=== PATIENT | male | born 1980 | race Two or more races ===

== ENCOUNTER 2017-01-06 05:23 | Emergency (ER) | payer SELFPAY ==
[~2017-01-06] VITALS: Ht 157.5 cm; Wt 45.4 kg
[2017-01-06 06:23] LABS: Basophils # (auto) 0.1 uL; Basophils % (auto) 0.7 % (0.0-2.0); Eosinophils # (auto) 0 uL; Eosinophils % (auto) 0.5 % (0.0-7.0); Hematocrit 42.6 % (41.0-53.0); Hemoglobin 14.6 g/dL (13.5-17.5); Lymphocytes # (auto) 1.5 uL; Lymphocytes % (auto) 15.4 % (10.0-50.0); Mean Corpuscular Hemoglobin 31.8 pg (28.0-32.0); Mean Corpuscular Hgb Conc. 34.3 g/dL (32.0-36.0); Mean Corpuscular Volume 92.6 fL (80.0-100.0); Mean Platelet Volume 8.7 fL (6.9-10.8); Monocytes # (auto) 0.9 uL; Monocytes % (auto) 9.1 % (0.0-12.0); Neutrophils # (auto) 7.4 uL; Neutrophils % (auto) 74.3 % (37.0-80.0); Nucleated Red Blood Cells % 0.1 %; Platelet Count (auto) 282 10^3/uL (140-450); Red Cell Distribution Width 14.5 % (11.8-14.3); White Blood Cell 9.9 10^3/uL (4.4-10.8)
[2017-01-06 06:33] LABS: Albumin 3.7 g/dL (3.4-5.0); BUN/Creatinine Ratio 41.4; Calcium 9.4 mg/dL (8.5-10.1); Potassium 4.2 mmol/L (3.5-5.1)
[2017-01-06 06:41] LABS: Bilirubin, Total 0.3 mg/dL (0.2-1.0); Total Protein 7.9 g/dL (6.4-8.2)
[2017-01-06] MEDS ORDERED: SODIUM CHLORIDE 0.9% 1,000 ML IV ONE (06:45)
[2017-01-06] MEDS ORDERED: ONDANSETRON HCL 4 MG/2 ML VIAL IV ONE (06:45)
[2017-01-06] MEDS ORDERED: HYDROmorphone HCL 2 MG/ML VL IV ONE (07:30)
[2017-01-06 07:31] VITALS: BP 124/98
[2017-01-06] MEDS ORDERED: KETOROLAC TROMETH 30 MG/ML 1ML VIAL ONE (08:00)
[2017-01-06] MEDS ORDERED: KETOROLAC TROMETH 30 MG/ML 1ML VIAL IV ONE (08:15)
[2017-01-06] MEDS ORDERED: DOCUSATE ORAL LIQUID 100 MG/10 ML UD GT ONE (09:15)
== END 2017-01-06 10:40 | disposition home or self-care (01) ==
LOC: EDBD 05:23 → ER 05:33
DX: K59.00 Constipation, unspecified (principal)
CPT/HCPCS: 36415; 74176; 80053; 82150; 83690; 85025; 96361; 96374; 96375; 99285; J1885; J2405

== ENCOUNTER 2017-07-16 06:18 | Inpatient (IN) | payer MEDICAID ==
[~2017-07-16] VITALS: Ht 160 cm; Wt 44.8 kg
[~2017-07-16 06:18] MED LIST: BACL10TA GT; BISA-4 PR; DEXT100S73 GT; ESOM40CA39 GT; IPRIH IN; LEVE500T3 GT; MELA3TAB27 GT; MULTLIQ28 GT; NUTR1.5L4 GT; OLAN5TAB30 GT; SENN1TAB14 PO; ZONI1POW2 GT
[2017-07-16] MEDS ORDERED: SODIUM CHLORIDE 0.9% 1,000 ML IV ONE (07:17)
[2017-07-16 07:43] LABS: Basophils # (auto) 0 uL; Basophils % (auto) 0.2 % (0.0-2.0); Eosinophils # (auto) 0 uL; Eosinophils % (auto) 0.2 % (0.0-7.0); Lymphocytes # (auto) 0.8 uL; Monocytes # (auto) 0.5 uL; Neutrophils # (auto) 8.3 uL
[2017-07-16 07:51] LABS: Hematocrit 47.2 % (41.0-53.0); Hemoglobin 15.9 g/dL (13.5-17.5); Lymphocytes % (auto) 8.2 % (10.0-50.0); Mean Corpuscular Hemoglobin 30.7 pg (28.0-32.0); Mean Corpuscular Hgb Conc. 33.8 g/dL (32.0-36.0); Mean Corpuscular Volume 90.9 fL (80.0-100.0); Monocytes % (auto) 4.7 % (0.0-12.0); Neutrophils % (auto) 86.7 % (37.0-80.0); Platelet Count (auto) 222 10^3/uL (140-450); Red Blood Cells 5.19 10^6/uL (4.5-5.90); Red Cell Distribution Width 13.1 % (11.8-14.3); White Blood Cell 9.6 10^3/uL (4.4-10.8)
[2017-07-16 07:57] LABS: Alanine Aminotransferase 43 U/L (16-61); Albumin 4.1 g/dL (3.4-5.0); Alkaline Phosphatase 107 U/L (45-117); Amylase 53 U/L (25-115); Anion Gap 8 (5-15); Aspartate Aminotransferase 21 U/L (15-37); BUN/Creatinine Ratio 29.1; Bilirubin, Total 0.5 mg/dL (0.2-1.0); Blood Urea Nitrogen 23 mg/dL (7-18); Calcium 9.4 mg/dL (8.5-10.1); Carbon Dioxide 26 mmol/L (21-32); Chloride 108 mmol/L (98-107); GFR African American 141 mL/min; GFR Non-African American 117 mL/min; Glucose 112 mg/dL (74-106); Lipase 107 U/L (73-393); Potassium 3.9 mmol/L (3.5-5.1); Sodium 142 mmol/L (136-145); Total Protein 8.8 g/dL (6.4-8.2)
[2017-07-16 11:29] LABS: Urine Bacteria FEW /hpf (None Seen); Urine Blood 2+ /uL (Negative); Urine Mucus FEW (None Seen); Urine Specific Gravity 1.018 (1.001-1.035); Urine WBC 143 /hpf (0 - 3)
[2017-07-16] MEDS ORDERED: ONDANSETRON HCL 4 MG/2 ML VIAL ONE (13:34)
[2017-07-16] MEDS ORDERED: ONDANSETRON HCL 4 MG/2 ML VIAL IV ONE (13:45)
[2017-07-16] MEDS ORDERED: PANTOPRAZOLE 40 MG/10 ML VIAL IV ONE ×2 (14:30→14:45)
[2017-07-16] MEDS ORDERED: cefTRIAXone 1GM/10ml IVPUSH 10 ML IV ONE (14:45)
[2017-07-16] MEDS ORDERED: NITROGLYCERIN 0.4 MG SL TAB SL PRN (14:45)
[2017-07-16] MEDS ORDERED: LORazepam 2MG/ML-1ML VIAL IV PRN (14:45)
[2017-07-16] MEDS ORDERED: MORPHINE SULFATE 8mg/ml INJ SDV IV PRN ×3 (14:45)
[2017-07-16] MEDS ORDERED: PROMETHAZINE HCL 25 MG/ML 1ML IV PRN (14:45)
[2017-07-16] MEDS ORDERED: ALBUTEROL SULF 2.5 MG/0.5ML(0.5%) NEB SOLN NEB PRN (14:45)
[2017-07-16 15:13] VITALS: BP 100/75
[2017-07-16] MEDS: SODIUM CHLORIDE 0.9% 1,000 ML IV SCH (15:21)
[2017-07-16] MEDS: LACTULOSE 20Gm/30ML SOLN PO SCH ×2 (15:30→23:21)
[2017-07-16 18:10] LABS: Hematocrit 41.2 % (41.0-53.0); Hemoglobin 13.6 g/dL (13.5-17.5)
[2017-07-16] MEDS: IPRATROPIUM BROM 0.5 MG/2.5ML INH SOL NEB SCH (18:37)
[2017-07-16] MEDS: ALBUTEROL SULF 2.5 MG/0.5ML(0.5%) NEB SOLN NEB SCH (18:37)
[2017-07-16 20:30] VITALS: BP 103/68
[2017-07-16 21:00] VITALS: BP 103/68
[2017-07-16] MEDS ORDERED: GASTROGRAFIN 30 ML SOL ONE (21:13)
[2017-07-16] MEDS ORDERED: FLEET ENEMA(ADULT) 135 ML PR ONE (23:00)
[2017-07-17] MEDS: ALBUTEROL SULF 2.5 MG/0.5ML(0.5%) NEB SOLN NEB SCH ×4 (00:52→19:07)
[2017-07-17] MEDS: IPRATROPIUM BROM 0.5 MG/2.5ML INH SOL NEB SCH ×4 (00:52→19:06)
[2017-07-17 01:07] LABS: Hematocrit 43.7 % (41.0-53.0); Hemoglobin 14.3 g/dL (13.5-17.5)
[2017-07-17] MEDS: SODIUM CHLORIDE 0.9% 1,000 ML IV SCH ×3 (02:08→20:45)
[2017-07-17 04:56] VITALS: BP 89/50
[2017-07-17 05:39] LABS: Hematocrit 41.2 % (41.0-53.0); Hemoglobin 13.7 g/dL (13.5-17.5)
[2017-07-17 09:00] VITALS: BP 108/68
[2017-07-17] MEDS: PANTOPRAZOLE 40 MG/10 ML VIAL IV SCH (09:52)
[2017-07-17] MEDS: cefTRIAXone 1GM/10ml IVPUSH 10 ML IV SCH (09:52)
[2017-07-17] MEDS: LACTULOSE 20Gm/30ML SOLN PO SCH ×2 (09:53→22:06)
[2017-07-17] MEDS: ENOXAPARIN SOD 40 MG/0.4 ML SYRINGE SC SCH (09:53)
[2017-07-17] MEDS: AZITHROMYCIN 500MG/ 250ML 250 ML IV SCH (09:53)
[2017-07-17 11:38] LABS: INR 1.05 (0.9-1.15); Partial Thromboplastin Time 27.2 sec (23.78-33.04); Prothrombin Time 11.2 sec (9.27-12.13)
[2017-07-17 12:28] VITALS: BP 99/64
[2017-07-17] MEDS ORDERED: LIDOCAINE VISCOUS 2% 15ML UD ONE (13:50)
[2017-07-17] MEDS ORDERED: MIDAZOLAM HCL 5 MG/ML-1ML VIAL ONE (13:50)
[2017-07-17] MEDS ORDERED: fentaNYL CITRATE 100 MCG/2 ML VL ONE (13:50)
[2017-07-17] MEDS ORDERED: diphenhdrAMINE HCL 50 MG/1 ML VL ONE (15:35)
[2017-07-17] MEDS ORDERED: BENZOCAINE (DENTAL) 20 % SPRAY 60ML MT ONE (15:48)
[2017-07-18] MEDS: ALBUTEROL SULF 2.5 MG/0.5ML(0.5%) NEB SOLN NEB SCH ×4 (00:17→19:51)
[2017-07-18] MEDS: IPRATROPIUM BROM 0.5 MG/2.5ML INH SOL NEB SCH ×4 (00:17→19:51)
[2017-07-18] MEDS: SODIUM CHLORIDE 0.9% 1,000 ML IV SCH (02:37)
[2017-07-18 04:00] VITALS: BP 96/57
[2017-07-18 05:47] LABS: Basophils # (auto) 0 uL; Basophils % (auto) 0.6 % (0.0-2.0); Eosinophils # (auto) 0.1 uL; Eosinophils % (auto) 1.6 % (0.0-7.0); Hematocrit 34.2 % (41.0-53.0); Hemoglobin 11.6 g/dL (13.5-17.5); Lymphocytes # (auto) 1.8 uL; Lymphocytes % (auto) 34.3 % (10.0-50.0); Mean Corpuscular Hemoglobin 31.4 pg (28.0-32.0); Mean Corpuscular Hgb Conc. 33.9 g/dL (32.0-36.0); Mean Corpuscular Volume 92.5 fL (80.0-100.0); Monocytes # (auto) 0.4 uL; Monocytes % (auto) 7.4 % (0.0-12.0); Neutrophils # (auto) 2.9 uL; Neutrophils % (auto) 56.1 % (37.0-80.0); Platelet Count (auto) 161 10^3/uL (140-450); White Blood Cell 5.1 10^3/uL (4.4-10.8)
[2017-07-18 06:02] LABS: BUN/Creatinine Ratio 42.5; Calcium 8.3 mg/dL (8.5-10.1); Magnesium 2.6 mg/dL (1.6-2.6); Potassium 3.4 mmol/L (3.5-5.1)
[2017-07-18] MEDS ORDERED: POTASSIUM CHL 10 Meq TABLET PO ONE (06:15)
[2017-07-18 09:00] VITALS: BP 86/50
[2017-07-18] MEDS: PANTOPRAZOLE 40 MG/10 ML VIAL IV SCH (10:27)
[2017-07-18] MEDS: ENOXAPARIN SOD 40 MG/0.4 ML SYRINGE SC SCH (10:27)
[2017-07-18] MEDS: LACTULOSE 20Gm/30ML SOLN PO SCH ×2 (10:27→22:34)
[2017-07-18] MEDS: cefTRIAXone 1GM/10ml IVPUSH 10 ML IV SCH (10:27)
[2017-07-18] MEDS: AZITHROMYCIN 500MG/ 250ML 250 ML IV SCH (10:28)
[2017-07-18 13:00] VITALS: BP 54/48
[2017-07-18] MEDS: SOD CHL 0.45% 1,000 ML IV SCH (15:45)
[2017-07-18 17:00] VITALS: BP 112/68
[2017-07-18] MEDS: LEVETIRACETAM 500 MG TAB PO SCH ×2 (17:27→22:00)
[2017-07-18 21:38] VITALS: BP 106/70
[2017-07-18] MEDS: PANTOPRAZOLE 40 MG TAB PO SCH (22:00)
[2017-07-19] VITALS (8 sets, daily range): BP systolic 99–116; BP diastolic 60–78
[2017-07-19] MEDS: IPRATROPIUM BROM 0.5 MG/2.5ML INH SOL NEB SCH ×4 (00:21→19:03)
[2017-07-19] MEDS: ALBUTEROL SULF 2.5 MG/0.5ML(0.5%) NEB SOLN NEB SCH ×4 (00:21→19:03)
[2017-07-19] MEDS: SOD CHL 0.45% 1,000 ML IV SCH ×4 (01:03→22:18)
[2017-07-19 05:50] LABS: Basophils # (auto) 0 uL; Basophils % (auto) 0.7 % (0.0-2.0); Eosinophils # (auto) 0.3 uL; Eosinophils % (auto) 5.1 % (0.0-7.0); Hematocrit 36.8 % (41.0-53.0); Hemoglobin 12.4 g/dL (13.5-17.5); Lymphocytes # (auto) 2.1 uL; Lymphocytes % (auto) 43.5 % (10.0-50.0); Mean Corpuscular Hemoglobin 30.7 pg (28.0-32.0); Mean Corpuscular Hgb Conc. 33.8 g/dL (32.0-36.0); Mean Corpuscular Volume 90.8 fL (80.0-100.0); Monocytes # (auto) 0.4 uL; Neutrophils # (auto) 2.1 uL; Neutrophils % (auto) 42.7 % (37.0-80.0); Platelet Count (auto) 161 10^3/uL (140-450); Red Blood Cells 4.05 10^6/uL (4.5-5.90); Red Cell Distribution Width 12.8 % (11.8-14.3); White Blood Cell 4.9 10^3/uL (4.4-10.8)
[2017-07-19] MEDS: LEVETIRACETAM 500 MG TAB PO SCH ×3 (06:00→22:17)
[2017-07-19 06:11] LABS: Anion Gap 10 (5-15); BUN/Creatinine Ratio 29.3; Blood Urea Nitrogen 12 mg/dL (7-18); Calcium 8.2 mg/dL (8.5-10.1); Carbon Dioxide 24 mmol/L (21-32); Chloride 112 mmol/L (98-107); GFR African American 301 mL/min; GFR Non-African American 249 mL/min; Glucose 74 mg/dL (74-106); Potassium 3.1 mmol/L (3.5-5.1); Sodium 146 mmol/L (136-145)
[2017-07-19] MEDS ORDERED: POTASSIUM CHL 20 Meq TABLET PO ONE (07:45)
[2017-07-19] MEDS: LACTULOSE 20Gm/30ML SOLN PO SCH ×2 (09:57→22:17)
[2017-07-19] MEDS: PANTOPRAZOLE 40 MG TAB PO SCH ×2 (09:58→22:17)
[2017-07-19] MEDS: ENOXAPARIN SOD 40 MG/0.4 ML SYRINGE SC SCH (09:58)
[2017-07-19] MEDS: AZITHROMYCIN 500MG/ 250ML 250 ML IV SCH (09:58)
[2017-07-19] MEDS: cefTRIAXone 1GM/10ml IVPUSH 10 ML IV SCH (09:58)
[2017-07-19] MEDS ORDERED: Fibersource Hn 1 Liter GT SCH (14:15)
[2017-07-20] MEDS: ALBUTEROL SULF 2.5 MG/0.5ML(0.5%) NEB SOLN NEB SCH ×4 (00:01→18:09)
[2017-07-20] MEDS: IPRATROPIUM BROM 0.5 MG/2.5ML INH SOL NEB SCH ×4 (00:01→18:09)
[2017-07-20 05:00] VITALS: BP 115/75
[2017-07-20] MEDS: LEVETIRACETAM 500 MG TAB PO SCH ×3 (06:00→23:23)
[2017-07-20 09:00] VITALS: BP 107/61
[2017-07-20] MEDS: cefTRIAXone 1GM/10ml IVPUSH 10 ML IV SCH (09:00)
[2017-07-20] MEDS: PANTOPRAZOLE 40 MG/10 ML VIAL IV SCH ×2 (10:21→23:22)
[2017-07-20] MEDS: AZITHROMYCIN 500MG/ 250ML 250 ML IV SCH (10:21)
[2017-07-20] MEDS: LACTULOSE 20Gm/30ML SOLN PO SCH ×2 (10:22→23:23)
[2017-07-20] MEDS: ENOXAPARIN SOD 40 MG/0.4 ML SYRINGE SC SCH (10:22)
[2017-07-20] MEDS ORDERED: PIPERACILLIN-TAZOB 3.375GM 100 ML IV ONE (12:45)
[2017-07-20 13:00] VITALS: BP 99/56
[2017-07-20] MEDS ORDERED: POTASSIUM CHL 20MEQ/100ML 100 ML IV ONE (14:00)
[2017-07-20 17:00] VITALS: BP 103/65
[2017-07-20] MEDS: SOD CHL 0.45% 1,000 ML IV SCH (17:00)
[2017-07-20] MEDS: PIPERACILLIN-TAZOB 3.375GM 100 ML IV SCH ×2 (18:40→23:42)
[2017-07-20 22:00] VITALS: BP 90/57
[2017-07-21] MEDS: IPRATROPIUM BROM 0.5 MG/2.5ML INH SOL NEB SCH ×3 (00:53→12:00)
[2017-07-21] MEDS: ALBUTEROL SULF 2.5 MG/0.5ML(0.5%) NEB SOLN NEB SCH ×3 (00:53→12:00)
[2017-07-21 05:00] VITALS: BP 90/67
[2017-07-21] MEDS: PIPERACILLIN-TAZOB 3.375GM 100 ML IV SCH ×2 (06:27→11:55)
[2017-07-21] MEDS: SOD CHL 0.45% 1,000 ML IV SCH (06:28)
[2017-07-21] MEDS: LEVETIRACETAM 500 MG TAB PO SCH (06:29)
[2017-07-21 07:28] LABS: BUN/Creatinine Ratio 21.4; Calcium 8.8 mg/dL (8.5-10.1); Potassium 3.8 mmol/L (3.5-5.1)
[2017-07-21 08:40] VITALS: BP 83/44
[2017-07-21] MEDS: ENOXAPARIN SOD 40 MG/0.4 ML SYRINGE SC SCH (10:00)
[2017-07-21 10:53] LABS: Albumin 3.3 g/dL (3.4-5.0); BUN/Creatinine Ratio 18.8; Bilirubin, Total 0.3 mg/dL (0.2-1.0); Calcium 8.7 mg/dL (8.5-10.1); Potassium 3.9 mmol/L (3.5-5.1); Total Protein 6.9 g/dL (6.4-8.2)
[2017-07-21] MEDS: PANTOPRAZOLE 40 MG/10 ML VIAL IV SCH (11:07)
[2017-07-21] MEDS: LACTULOSE 20Gm/30ML SOLN PO SCH (11:07)
[2017-07-21] MEDS ORDERED: CIPR-173 PO (11:35)
[2017-07-21] MEDS ORDERED: CEFU500T43 PO (11:39)
[2017-07-21] MEDS ORDERED: SACC250C PO (11:39)
[2017-07-21] MEDS ORDERED: PANT40TA2 PO (11:55)
[2017-07-21 12:50] VITALS: BP 98/64
[2017-07-21 12:57] VITALS: BP 98/64
== END 2017-07-21 14:15 | disposition home or self-care (01) | DRG 241 ==
LOC: EDBD 06:18 → ER 06:20 → TELE 06:21 → TELE-WESTW 20:10
PROVIDERS: ADMIT Internal Medicine; ATTEND Internal Medicine
PROC: 0DJ08ZZ Inspection of Upper Intestinal Tract, Via Natural or Artificial Opening Endoscopic (ICD-10-PCS; principal; 2017-07-17 15:40)
DX: K25.0 Acute gastric ulcer with hemorrhage (principal); J69.0 Pneumonitis due to inhalation of food and vomit; E43 Unspecified severe protein-calorie malnutrition; K20.8 Other esophagitis; G80.9 Cerebral palsy, unspecified; N39.0 Urinary tract infection, site not specified; E86.0 Dehydration; K56.41 Fecal impaction; B96.4 Proteus (mirabilis) (morganii) as the cause of diseases classified elsewhere; Z68.1 Body mass index [BMI] 19.9 or less, adult; J98.11 Atelectasis; K44.9 Diaphragmatic hernia without obstruction or gangrene; K52.9 Noninfective gastroenteritis and colitis, unspecified; G40.909 Epilepsy, unspecified, not intractable, without status epilepticus; Z93.1 Gastrostomy status
CPT/HCPCS: 36415; 71045; 74018; 74176; 80048; 80053; 81001; 82150; 83690; 83735; 84132; 84484; 85014; 85018; 85025; 85045; 85610; 85730; 86677; 86850; 86900; 86901; 87040; 87086; 87088; 87186; 94640; 96374; 96375; C9113; J2250; J2405; J2543; J3480

== ENCOUNTER 2018-03-11 14:05 | Inpatient (IN) | payer SELFPAY ==
[~2018-03-11] VITALS: Ht 152.4 cm; Wt 41.7 kg
[~2018-03-11 14:05] MED LIST changes: +CEFU500T43 PO; +CIPR-173 PO; +PANT40TA2 PO; +SACC250C PO
[2018-03-11 14:59] LABS: Basophils # (auto) 0 uL; Hemoglobin 10.7 g/dL (13.5-17.5); Neutrophils # (auto) 3.7 uL; Nucleated Red Blood Cells % 0.1 %
[2018-03-11 15:01] LABS: Basophils % (auto) 0.7 % (0.0-2.0); Eosinophils # (auto) 0.3 uL; Eosinophils % (auto) 4.6 % (0.0-7.0); Hematocrit 34.8 % (41.0-53.0); Lymphocytes % (auto) 30.2 % (10.0-50.0); Mean Corpuscular Hemoglobin 26.6 pg (28.0-32.0); Mean Corpuscular Hgb Conc. 30.8 g/dL (32.0-36.0); Mean Corpuscular Volume 86.2 fL (80.0-100.0); Monocytes # (auto) 0.7 uL; Monocytes % (auto) 9.8 % (0.0-12.0); Neutrophils % (auto) 54.7 % (37.0-80.0); Platelet Count (auto) 426 10^3/uL (140-450); Red Blood Cells 4.03 10^6/uL (4.5-5.90); Red Cell Distribution Width 14.8 % (11.8-14.3); White Blood Cell 6.7 10^3/uL (4.4-10.8)
[2018-03-11 15:05] LABS: INR 0.92 (0.9-1.15); Partial Thromboplastin Time 29.8 sec (23.78-33.04); Prothrombin Time 9.9 sec (9.27-12.13)
[2018-03-11 15:13] LABS: Albumin 2.2 g/dL (3.4-5.0); Anion Gap 5 (5-15); Blood Urea Nitrogen 18 mg/dL (7-18); Calcium 8.3 mg/dL (8.5-10.1); Carbon Dioxide 25 mmol/L (21-32); Chloride 108 mmol/L (98-107); Glucose 83 mg/dL (74-106); Potassium 3.9 mmol/L (3.5-5.1); Sodium 138 mmol/L (136-145)
[2018-03-11 15:16] LABS: Alanine Aminotransferase 26 U/L (16-61); Alkaline Phosphatase 91 U/L (45-117); Aspartate Aminotransferase 24 U/L (15-37); Bilirubin, Total 0.2 mg/dL (0.2-1.0); Total Protein 7.1 g/dL (6.4-8.2)
[2018-03-11 15:19] LABS: GFR African American > 60 mL/min; GFR Non-African American > 60 mL/min
[2018-03-11] MEDS ORDERED: PANTOPRAZOLE 40 MG/10 ML VIAL IV ONE (16:00)
[2018-03-11] MEDS ORDERED: PROMETHAZINE HCL 25 MG/ML 1ML IV PRN (16:00)
[2018-03-11] MEDS ORDERED: MORPHINE SULFATE 10 MG/ML INJ 1ML SDV IV PRN ×2 (16:00)
[2018-03-11] MEDS ORDERED: LORazepam 2MG/ML-1ML VIAL IV PRN (16:00)
[2018-03-11] MEDS ORDERED: NITROGLYCERIN 0.4 MG SL TAB SL PRN (16:00)
[2018-03-11] MEDS: D5W/SOD CHLO 0.9% 1,000 ML IV SCH (16:21)
[2018-03-11 20:00] VITALS: BP 117/69
--- NOTE | 2018-03-11 20:00 | NUR ---
received pt from er nurse poc reviewed
--- NOTE | 2018-03-11 20:30 | NUR ---
pts brother khushboo eliceo called. password is [email or web address], pts brother stated that he is the pts only family and he has POA, pt lives in a long-term [facility], caregiver is Ti phone number is [phone], number was called but voicemail was full and not able to accept calls.pt is non verbal,
--- NOTE | 2018-03-12 01:45 | NUR ---
[facility] [phone], PTS RESIDENCE
--- NOTE | 2018-03-12 02:05 | NUR ---
PT RESTLESS IN BED YELLING SIDE RAILS UP FOR PTS SAFETY
--- NOTE | 2018-03-12 03:09 | NUR ---
PICTURES TAKEN OF RIGHT AND LEFT FOOT SCRATCHES
[2018-03-12 05:00] VITALS: BP 102/63
[2018-03-12] MEDS: D5W/SOD CHLO 0.9% 1,000 ML IV SCH ×2 (05:20→18:40)
--- NOTE | 2018-03-12 06:13 | NUR ---
mrsa swab sent per protocol
--- NOTE | 2018-03-12 07:15 | NUR ---
Opening Note Pt resting in bed, awake and alert, rails up x2, bed locked, in low pos., call light in reach. no distress noted.
--- NOTE | 2018-03-12 07:34 | NUR ---
report given to am nurse poc reviewed
[2018-03-12 09:00] VITALS: BP 99/69
[2018-03-12 13:00] VITALS: BP 101/70
[2018-03-12] MEDS ORDERED: MORPHINE SULFATE 10 MG/ML INJ 1ML SDV IV ONE (13:15)
[2018-03-12] MEDS ORDERED: GASTROGRAFIN 30 ML SOL ONE (14:15)
--- NOTE | 2018-03-12 15:19 | NUR ---
LUZ MARINA OWUSU CALLED AND SAID IT IS OK TO USE THE PEG THAT WAS JUST PLACED. TREATING PHYSICIAN TO PLACE THE ORDER. Addendum: 03/12/18 at 1541 by NADIA ESPINAL RN RN CALLED DR. Archie GASTON CALLED FOR ORDERS ON G TUBE FEEDING. PUT IN A DIETARY CONSULT FOR FEEDINGS.
[2018-03-12 17:00] VITALS: BP 107/68
--- NOTE | 2018-03-12 19:30 | NUR ---
RECEIVED PT FROM DAY RN POC REVIEWED
--- NOTE | 2018-03-12 21:24 | NUR ---
PT TURNED AND REPOSITIONED WITH HOB UP, PEG TUBE SITE DRY AND INTACT, PT HAS MITTENS ON , T/T PAST H/O PULLING ON IV'S, SEIZURE AND ASPIRATION PRECAUTIONS OBSERVED, REORIENTED PT TO SURROUNDINGS
[2018-03-12 22:00] VITALS: BP 116/74
--- NOTE | 2018-03-12 23:00 | NUR ---
PT GIVEN ATIVAN FOR INCREASE IN AGITATION, PT IS A HIGH RISK FOR FALLING OUT OF BED,, BED ALARM INTACT, SIDE RAILS UP RESP EVEN AND UNLABORED ON 2L
[2018-03-13 04:54] VITALS: BP 104/63
--- NOTE | 2018-03-13 05:19 | NUR ---
RESTING WITH EYES CLOSED RESP EVEN AND UNLABORED, NO S/S OF RESTLESSNESS OR PAIN , BED ALARM ON PT NOT ABLE TO USE CALL LIGHT WILL CONTINUE TO MONITOR CLOSELY
--- NOTE | 2018-03-13 06:02 | NUR ---
AWOKE TOTAL BED BATH AND LINEN CHANGE, NO S/S OF ABD PAIN OR DISCOMFORT
--- NOTE | 2018-03-13 07:18 | NUR ---
REPORT GIVEN TO AM NURSE POC REVIEWED
--- NOTE | 2018-03-13 07:30 | NUR ---
Shift report Shift report received from night RN Mey. Pt resting in bed with eyes open, talking. Bed in low pos., locked, rails up x 2, call light in reach. Continue to monitor closely.
[2018-03-13 09:00] VITALS: BP 103/66
--- NOTE | 2018-03-13 10:21 | NUR ---
DISCHARGE PLANNING Called Dietary Consult for G-Tube feedings. No Answer so left a message. Called [facility] in [place] to find out what patient was getting in his GT feeding, called [phone] and no answer and unable to leave a message. Spoke to the brother at [phone] to let him (Jez) know patient is being discharged. The brother may still come by. Awgt call back from dietary. Called upper caser at [phone] and left a message regarding the patient going back to the board and care. Awtg call back from social work manager/case management.
--- NOTE | 2018-03-13 10:28 | NUR ---
Called [facility] and spoke with Tessie and she read the feeding that the patient was getting in the facility. It is Isosource 1.5 KCal 215ml every 6 hours bolus, and 150 ml of water four times a day, via G Tube feedings.
[2018-03-13] MEDS ORDERED: Jevity 1.2 Cal/Fiber 1 Liter GT SCH (10:45)
--- NOTE | 2018-03-13 10:47 | NUR ---
CASE MANAGEMENT CALLED AGAIN TO GET HOLD OF CASE MANAGEMENT AND LEFT INFORMATION WITH THE SENIOR SUPPLY CHAIN ANALYST, 3rd Call.
--- NOTE | 2018-03-13 10:58 | NUR ---
DISCHARGE PLANNING DAYNE of case management called back and was given the number to [facility], to find out about transportation.
[2018-03-13 11:46] VITALS: BP 103/66
--- NOTE | 2018-03-13 12:30 | NUR ---
REPORT GAVE REPORT TO SURY FERNANDEZ AT THE [facility], REGARDING THE REPLACED G-TUBE AND THE PATIENT TO FOLLOW UP WITH HIS PRIMARY HOSPITAL CLEANING SPECIALIST.
--- NOTE | 2018-03-13 12:47 | NUR ---
REPORT TO NURSE JUST LEFT AND NOT COMING BACK, NURSE NUMBER IS BENJI [phone]. Called Nurse Benji at the number provided, and no answer so a message was left. Called Ana to find out about transportation for this patient from [facility] to the board and care. Awtg callback from Ana of case management and awaiting possible call back from Benji of [facility]. Spoke to charge nurse Jamey and she has not heard any news about how or who is to transport the patient.
--- NOTE | 2018-03-13 13:15 | NUR ---
TRANSPORTATION SERVICE TRANSPORTERS HERE TO TAKE PATIENT BACK TO THE BOARD AND CARE. GOT PATIENT ONTO HIS OWN W/C AND STRAPPED HIM IN. APPLIED BOOTIES, WRAPPED ALL HIS BELONGINGS INTO A BAG. REMOVED IV AND TELEMETRY. SITE BENIGN. NO DISTRESS NOTED Addendum: 03/13/18 at 1417 by NADIA ESPINAL RN RN DISCHARGE PACKET INCLUDED IN THE DISCHARGE, AND WENT WITH THE PATIENT.
== END 2018-03-13 17:40 | DRG 394 ==
LOC: EDBD 14:05 → ER 14:11 → TELE 15:55 → TELE-WESTW 19:52
PROVIDERS: ADMIT Internal Medicine; ATTEND Family Medicine
PROC: 0D20XUZ Change Feeding Device in Upper Intestinal Tract, External Approach (ICD-10-PCS; principal; 2018-03-12)
DX: K94.29 Other complications of gastrostomy (principal); F72 Severe intellectual disabilities; G80.1 Spastic diplegic cerebral palsy; D64.9 Anemia, unspecified; K21.9 Gastro-esophageal reflux disease without esophagitis; K59.00 Constipation, unspecified; Y84.8 Other medical procedures as the cause of abnormal reaction of the patient, or of later complication, without mention of misadventure at the time of the procedure; Z87.442 Personal history of urinary calculi
CPT/HCPCS: 36415; 74021; 80053; 85025; 85610; 85730; 87081; 96361; 96374; C9113; G0378; J7042

== ENCOUNTER 2018-10-12 10:42 | Emergency (ER) | payer MEDICAID ==
[~2018-10-12] VITALS: Ht 167.6 cm; Wt 45.4 kg
[~2018-10-12 10:42] MED LIST changes: +MULT-119 OR; +POLY33504 GT; +SENN-58 GT
[2018-10-12] MEDS ORDERED: GASTROGRAFIN 30 ML SOL ONE (11:07)
[2018-10-12 11:28] VITALS: BP 90/60
== END 2018-10-12 13:41 | disposition home or self-care (01) ==
LOC: EDBD 10:42 → EDUNIT# 10:42 → ER 10:42
DX: Z43.1 Encounter for attention to gastrostomy (principal); K21.9 Gastro-esophageal reflux disease without esophagitis; Z79.899 Other long term (current) drug therapy
CPT/HCPCS: 43762; 74021; 99284; Q9963